=== PATIENT | female | born 1965 | race African-American/Black ===

== ENCOUNTER 2018-10-11 16:43 | Inpatient (IN) | payer BC ==
[~2018-10-11] VITALS: Ht 170.2 cm; Wt 80.3 kg
[2018-10-11 18:32] LABS: BASOPHILS % 1.2 % (0.0-2.0); EOSINOPHILS % 3.4 % (0.0-5.0); LYMPHOCYTES % 32.8 % (20.0-50.0); MEAN CORPUSCULAR HEMOGLOBIN 29.9 pg (28.0-32.0); MEAN CORPUSCULAR VOLUME 89.9 fL (81.0-99.0); MONOCYTES % 9.4 % (2.0-8.0); NEUTROPHILS % 53.2 % (40.0-76.0); PLATELET 119 x1000/uL (130-400); RED CELL DISTRIBUTION WIDTH 15.7 % (11.6-14.6)
[2018-10-11 18:35] LABS: HEMATOCRIT. 19.8 % (36.0-48.0); HEMOGLOBIN. 6.6 g/dL (12.0-16.0)
[2018-10-11 18:36] LABS: CHLORIDE 114 mEq/L (98-107)
[2018-10-11] MEDS ORDERED: IOHEXOL-300 100 ML BOTTLE ONE (20:40)
[2018-10-11 20:42] LABS: CLARITY URINE CLEAR (CLEAR); COLOR URINE YELLOW (YELLOW); KETONES URINE NEGATIVE (NEGATIVE); LEUKOCYTE ESTERASE URINE NEGATIVE (NEGATIVE); NITRITE URINE NEGATIVE (NEGATIVE); OCCULT BLOOD URINE NEGATIVE (NEGATIVE); PROTEIN URINE NEGATIVE (NEGATIVE); SPECIFIC GRAVITY URINE 1.013 (1.005-1.030); UROBILINOGEN URINE 0.2 E.U./dL (0.2-1.0)
[2018-10-11 20:53] LABS: *AMPHETAMINES SCREEN URINE NEGATIVE (NEGATIVE); *BARBITURATES SCREEN URINE NEGATIVE (NEGATIVE); *BENZODIAZEPINES SCREEN URINE NEGATIVE (NEGATIVE)
[2018-10-11 20:54] LABS: *COCAINE SCREEN URINE NEGATIVE (NEGATIVE); CANNABINOID URINE SCREEN NEGATIVE (NEGATIVE); METHADONE URINE SCREEN NEGATIVE (NEGATIVE); OPIATES URINE SCREEN NEGATIVE (NEGATIVE)
[2018-10-11 20:55] LABS: PHENCYCLIDINE URINE SCREEN NEGATIVE (NEGATIVE)
[2018-10-11 22:00] VITALS: BP 161/77
[2018-10-11] MEDS ORDERED: FURO-152 PO (22:45)
[2018-10-11] MEDS ORDERED: POTA20TA82 PO (22:45)
[2018-10-11] MEDS ORDERED: LISI-604 PO (22:45)
[2018-10-11] MEDS ORDERED: ACETAMINOPHEN 650MG SUPP PR PRN (23:30)
[2018-10-11] MEDS ORDERED: ACETAMINOPHEN 325MG TABLET PO PRN (23:30)
[2018-10-11] MEDS ORDERED: HYDROCODONE/ACETAMINOPHEN 10/325MG TABLET PO PRN (23:30)
[2018-10-11] MEDS ORDERED: IPRATROPIUM/ALBUTEROL 0.5-3(2.5)MG/3ML NEB INH PRN (23:30)
[2018-10-11] MEDS ORDERED: ONDANSETRON HCL 4MG/2ML INJ IV PRN (23:30)
[2018-10-11] MEDS ORDERED: CLONIDINE 0.1MG TABLET PO PRN (23:30)
[2018-10-11] MEDS ORDERED: HYDROCODONE/ACETAMINOPHEN 5/325MG TABLET PO PRN (23:30)
[2018-10-11] MEDS ORDERED: DIPHENHYDRAMINE 50MG/ML VIAL IV PRN (23:30)
[2018-10-11] MEDS ORDERED: NA PHOS,M-B/NA PHOS,DI-BA ENEMA 118ML PR PRN (23:30)
[2018-10-11] MEDS ORDERED: ACETAMINOPHEN 650MG/20.3ML UDC GT PRN (23:30)
[2018-10-11] MEDS ORDERED: MAGNESIUM/ALUMINUM HYDROXIDE/SIMETHICONE 30ML UDC PO PRN (23:30)
[2018-10-11] MEDS ORDERED: DOCUSATE SODIUM 100MG CAPSULE PO PRN (23:30)
[2018-10-11] MEDS ORDERED: GUAIFENESIN 200MG/10ML SUGAR FREE UDC PO PRN (23:30)
[2018-10-11] MEDS: FUROSEMIDE 20MG TABLET PO SCH (23:45)
[2018-10-11] MEDS ORDERED: MEDICATION NOT ON FORMULARY EA (Lisinopril 20 MG) PO SCH (23:45)
[2018-10-11] MEDS ORDERED: MEDICATION NOT ON FORMULARY EA (Furosemide (Lasix) 20 MG) PO SCH (23:45)
[2018-10-11] MEDS: LISINOPRIL 20MG TABLET PO SCH (23:45)
[2018-10-12] VITALS (17 sets, daily range): BP systolic 109–154; BP diastolic 56–79
[2018-10-12 03:05] LABS: EOSINOPHILS % 3.3 % (0.0-5.0); LYMPHOCYTES % 43.8 % (20.0-50.0); MEAN CORPUSCULAR HEMOGLOBIN 29.9 pg (28.0-32.0); MEAN CORPUSCULAR VOLUME 89.5 fL (81.0-99.0); MEAN PLATELET VOLUME 10.1 fl (7.4-10.4); MONOCYTES % 9.3 % (2.0-8.0); NEUTROPHILS % 42.6 % (40.0-76.0); PLATELET 79 x1000/uL (130-400); RED BLOOD CELL COUNT 2.14 mill/uL (4.2-5.4); RED CELL DISTRIBUTION WIDTH 15.3 % (11.6-14.6)
[2018-10-12 03:11] LABS: CHLORIDE 116 mEq/L (98-107)
[2018-10-12 03:14] LABS: HEMOGLOBIN. 6.4 g/dL (12.0-16.0)
[2018-10-12 03:15] LABS: HEMATOCRIT. 19.2 % (36.0-48.0)
[2018-10-12 03:17] LABS: TOTAL IRON BINDING CAPACITY 260 ug/dL (250-450)
[2018-10-12 03:19] LABS: LDL CHOLESTEROL 27 mg/dL (5-100)
[2018-10-12 03:22] LABS: HDL CHOLESTEROL 27 mg/dL (40-59)
[2018-10-12 04:23] LABS: VITAMIN B12 SERUM 941 pg/mL (211-911)
[2018-10-12 05:01] LABS: FOLIC ACID (FOLATE) SERUM > 20.00 ng/mL (>5.38)
[2018-10-12] MEDS ORDERED: SODIUM CHLORIDE 0.9% INJ 3ML FLUSH IVF SCH (06:00)
[2018-10-12] MEDS: FUROSEMIDE 20MG TABLET PO SCH (09:47)
[2018-10-12] MEDS: PANTOPRAZOLE SODIUM 40 MG/VIAL IV SCH (09:47)
[2018-10-12] MEDS: LISINOPRIL 20MG TABLET PO SCH (09:48)
[2018-10-12 15:44] LABS: BASOPHILS % 0.7 % (0.0-2.0); EOSINOPHILS % 2.7 % (0.0-5.0); HEMATOCRIT. 26.5 % (36.0-48.0); HEMOGLOBIN. 8.7 g/dL (12.0-16.0); LYMPHOCYTES % 29.2 % (20.0-50.0); MEAN CORPUSCULAR HEMOGLOBIN 29.5 pg (28.0-32.0); MEAN CORPUSCULAR VOLUME 90.2 fL (81.0-99.0); MEAN PLATELET VOLUME 9.8 fl (7.4-10.4); MONOCYTES % 8.9 % (2.0-8.0); NEUTROPHILS % 58.5 % (40.0-76.0); PLATELET 86 x1000/uL (130-400); RED BLOOD CELL COUNT 2.93 mill/uL (4.2-5.4); RED CELL DISTRIBUTION WIDTH 15.3 % (11.6-14.6)
[2018-10-12 17:58] LABS: CLARITY URINE CLEAR (CLEAR); COLOR URINE YELLOW (YELLOW); KETONES URINE NEGATIVE (NEGATIVE); LEUKOCYTE ESTERASE URINE NEGATIVE (NEGATIVE); NITRITE URINE NEGATIVE (NEGATIVE); OCCULT BLOOD URINE NEGATIVE (NEGATIVE); PH URINE 5.5 (4.5-8.0); PROTEIN URINE NEGATIVE (NEGATIVE); SPECIFIC GRAVITY URINE 1.006 (1.005-1.030); UROBILINOGEN URINE 0.2 E.U./dL (0.2-1.0)
[2018-10-12 18:10] LABS: INR 1.3; PARTIAL THROMBOPLASTIN TIME 34.7 sec (23.4-31.0); PROTHROMBIN TIME 13.1 sec (9.1-11.1)
[2018-10-12 18:11] LABS: *AMPHETAMINES SCREEN URINE NEGATIVE (NEGATIVE); *BARBITURATES SCREEN URINE NEGATIVE (NEGATIVE); *BENZODIAZEPINES SCREEN URINE NEGATIVE (NEGATIVE); *COCAINE SCREEN URINE NEGATIVE (NEGATIVE); METHADONE URINE SCREEN NEGATIVE (NEGATIVE)
[2018-10-12 18:12] LABS: CANNABINOID URINE SCREEN NEGATIVE (NEGATIVE); OPIATES URINE SCREEN NEGATIVE (NEGATIVE); PHENCYCLIDINE URINE SCREEN NEGATIVE (NEGATIVE)
[2018-10-12 18:23] LABS: TOTAL IRON BINDING CAPACITY 295 ug/dL (250-450)
[2018-10-12 23:35] LABS: HEMATOCRIT 23.7 % (36.0-48.0); HEMOGLOBIN 7.9 g/dL (12.0-16.0)
[2018-10-13] VITALS: BP 146/66
[2018-10-13 04:00] VITALS: BP 137/71
[2018-10-13 06:32] LABS: HEMATOCRIT 23.9 % (36.0-48.0); HEMOGLOBIN 8.1 g/dL (12.0-16.0)
[2018-10-13 08:00] VITALS: BP 131/66
[2018-10-13] MEDS: FUROSEMIDE 20MG TABLET PO SCH (08:55)
[2018-10-13] MEDS: PANTOPRAZOLE SODIUM 40 MG/VIAL IV SCH (08:55)
[2018-10-13] MEDS: LISINOPRIL 20MG TABLET PO SCH (08:56)
[2018-10-13 12:00] VITALS: BP 139/63
[2018-10-13] MEDS ORDERED: MIDAZOLAM HCL 5 MG/5 ML VIAL ONE (13:16)
[2018-10-13] MEDS ORDERED: FENTANYL CITRATE/PF 50MCG/ML 2ML VIAL ONE (13:16)
[2018-10-13] MEDS ORDERED: SIMETHICONE 40 MG/0.6 ML 30ML ONE (13:16)
[2018-10-13 16:00] VITALS: BP 154/63
[2018-10-13] MEDS ORDERED: PROT40 MT (17:09)
[2018-10-13 17:15] VITALS: BP 154/63
[2018-10-13] MEDS ORDERED: PANTOPRAZOLE SODIUM 40 MG/VIAL IV SCH (21:00)
== END 2018-10-13 18:59 | disposition home or self-care (01) | DRG 377 ==
LOC: ER 19:52 → 5WST 20:19 → ENRESERV 20:36
PROVIDERS: ADMIT Family Medicine; ATTEND Family Medicine
PROC: 30233N1 Transfusion of Nonautologous Red Blood Cells into Peripheral Vein, Percutaneous Approach (ICD-10-PCS; 2018-10-12)
PROC: 0DB68ZX Excision of Stomach, Via Natural or Artificial Opening Endoscopic, Diagnostic (ICD-10-PCS; principal; 2018-10-13)
DX: K29.71 Gastritis, unspecified, with bleeding (principal); E43 Unspecified severe protein-calorie malnutrition; J84.9 Interstitial pulmonary disease, unspecified; R18.8 Other ascites; D64.9 Anemia, unspecified; I10 Essential (primary) hypertension; K74.60 Unspecified cirrhosis of liver; K80.20 Calculus of gallbladder without cholecystitis without obstruction; Z79.899 Other long term (current) drug therapy; Z68.27 Body mass index [BMI] 27.0-27.9, adult
CPT/HCPCS: 36415; 71045; 74177; 76700; 80061; 80305; 82270; 82607; 82728; 82746; 83540; 83550; 83880; 84484; 85014; 85018; 86850; 86900; 86920; 88305; 88312; 88313; 93005; 99291; C1893; C9113; J1200; J2250; J3010; J7050; P9016; Q9967

== ENCOUNTER 2024-04-14 12:27 | Emergency (ER) | payer BC ==
[~2024-04-14] VITALS: Ht 167.6 cm; Wt 84.0 kg
[~2024-04-14 12:27] MED LIST: FURO-152 PO; POTA-205 PO; PROT40 MT
[2024-04-14 12:30] VITALS: BP 155/83; PULSE 107; RESP 20; TEMP 98.1; O2SAT 97
[2024-04-14] MEDS: DICYCLOMINE 10 MG/5 ML ORAL SYR PO STA (13:01)
[2024-04-14 13:09] LABS: HEMATOCRIT. 44.1 % (36.0-48.0); HEMOGLOBIN. 14.3 g/dL (12.0-16.0); MEAN CORPUSCULAR HEMOGLOBIN 29.3 pg (28.0-32.0); MEAN CORPUSCULAR HGB CONC 32.5 g/dL (31.0-37.0); MEAN PLATELET VOLUME 9.4 fl (7.4-10.4); PLATELET 143 x1000/uL (130-400); RED CELL DISTRIBUTION WIDTH 13.3 % (11.6-14.6); WHITE BLOOD COUNT 10.6 x1000/uL (4.5-11.0)
[2024-04-14 13:15] LABS: DIFFERENTIAL COMMENT 1
[2024-04-14 13:27] LABS: CARBON DIOXIDE 27 mEq/L (21-32); CHLORIDE 105 mEq/L (98-107); POTASSIUM 4.2 mEq/L (3.5-5.1); SODIUM 137 mEq/L (136-145)
[2024-04-14 13:28] LABS: CALCIUM 9.5 mg/dL (8.7-10.4)
[2024-04-14 13:32] LABS: CREATININE 0.7 mg/dL (0.6-1.0)
[2024-04-14 13:33] LABS: GLUCOSE 152 mg/dL (70-105); UREA NITROGEN BLOOD 18 mg/dL (9-23)
[2024-04-14 13:34] LABS: ALANINE AMINOTRANSFERASE 18 IU/L (10-49); ASPARTATE AMINOTRANSFERASE 30 IU/L (<34)
[2024-04-14 13:35] LABS: ALBUMIN 4.6 g/dL (3.2-4.8); BILIRUBIN DIRECT 0.3 mg/dL (<=3.0); BILIRUBIN TOTAL 0.6 mg/dL (0.1-1.0)
[2024-04-14] MEDS: MAGNESIUM/ALUMINUM HYDROXIDE/SIMETHICONE 30ML UDC PO STA (13:43)
[2024-04-14] MEDS: ONDANSETRON 4MG ODT PO STA (13:43)
[2024-04-14 13:46] LABS: PROTEIN TOTAL 8.4 g/dL (6.0-8.3)
[2024-04-14] MEDS ORDERED: ONDA4TAB11 PO (13:59)
[2024-04-14] MEDS ORDERED: LOPE2CAP MT (13:59)
[2024-04-14 14:01] LABS: PLATELET ESTIMATE NORMAL
== END 2024-04-14 14:04 | disposition home or self-care (01) ==
LOC: ER 12:27
DX: A08.4 Viral intestinal infection, unspecified (principal); D64.9 Anemia, unspecified; I10 Essential (primary) hypertension
CPT/HCPCS: 99283; 80076; 80048; 83690; 85025; 36415; Q0162

== ENCOUNTER 2024-12-09 09:54 | Emergency (ER) | payer BC ==
[~2024-12-09] VITALS: Ht 170.2 cm; Wt 73.9 kg
[~2024-12-09 09:54] MED LIST changes: +LOPE2CAP MT; +ONDA-239 PO
[2024-12-09 10:01] VITALS: BP 127/73; TEMP 36.7; O2SAT 100
[2024-12-09 10:02] VITALS: PULSE 104; RESP 16; O2SAT 99
[2024-12-09] MEDS ORDERED: P50 MT (11:40)
== END 2024-12-09 11:54 | disposition home or self-care (01) ==
LOC: ER 09:54
DX: L50.9 Urticaria, unspecified (principal); Z79.899 Other long term (current) drug therapy
CPT/HCPCS: 99283